=== PATIENT | female | born 1980 | race Caucasian/White ===

== ENCOUNTER → 2020-07-13 | Outpatient (CLI) | payer BC ==
--- NOTE | 2020-07-16 10:13 | MM ---
Reason for exam: screening (asymptomatic). Baseline mammogram. History: Family history of breast cancer in paternal grandmother. Took hormonal contraceptives beginning at age 20. Physical Findings: Nurse did not find any significant physical abnormalities on exam. MG 3D Screening Mammo W/Cad Bilateral CC, MLO, and XCCL view(s) were taken. The breast tissue is heterogeneously dense. This may lower the sensitivity of mammography. Focal asymmetry left MLO view. These results were verbally communicated with the patient and result sheet given to the patient on 07/13/20. ASSESSMENT: Benign, BI-RAD 2 RECOMMENDATION: Routine screening mammogram of both breasts in 1 year.
== END | disposition home or self-care (01) ==
LOC: RADMAMWWP 13:35
PROVIDERS: ATTEND Obstetrics & Gynecology
DX: Z12.31 Encounter for screening mammogram for malignant neoplasm of breast (principal); Z80.3 Family history of malignant neoplasm of breast
CPT/HCPCS: 77063; 77067

== ENCOUNTER → 2021-09-04 | Outpatient (CLI) | payer BC ==
--- NOTE | 2021-09-10 19:48 | MM ---
Reason for Exam: Screening (asymptomatic). Last mammogram was performed 1 year(s) and 2 month(s) ago. Patient History: Menarche at age 13. First Full-Term at age 29. Hormonal Contraceptives, from age 20 until age 28. Paternal grandmother had breast cancer at or over age 50. Last menstrual period: 08/27/2021 Risk Values: Julisa 5 year model risk: 0.7%. NCI Lifetime model risk: 11.0%. Prior Study Comparison: 07/13/2020 Bilateral Screening Mammogram, [facility]. Tissue Density: The breast tissue is heterogeneously dense. This may lower the sensitivity of mammography. Findings: Analyzed By CAD. Unchanged areas of asymmetric density bilaterally. No significant change from prior exams. Overall Assessment: Benign, BI-RAD 2 Management: Screening Mammogram of both breasts in 1 year. 1. A clinical breast exam by your physician is recommended on an annual basis and results should be correlated with mammographic findings. 2. Patient should continue monthly self breast exams. 3. This exam should not preclude additional follow-up of suspicious palpable abnormalities. Electronically signed and approved by: Claudine Andrade M.D. Radiologist
== END | disposition home or self-care (01) ==
LOC: RADMAMWWP 16:11
PROVIDERS: ATTEND Obstetrics & Gynecology
DX: Z12.31 Encounter for screening mammogram for malignant neoplasm of breast (principal); Z80.3 Family history of malignant neoplasm of breast
CPT/HCPCS: 77063; 77067

== ENCOUNTER → 2022-09-09 | Outpatient (CLI) | payer BC ==
--- NOTE | 2022-09-09 17:34 | MM ---
Reason for Exam: Screening (asymptomatic). Last screening mammogram was performed 12 month(s) ago. Patient History: Menarche at age 13. First Full-Term at age 29. Hormonal Contraceptives, from age 20 until age 28. Paternal grandmother had breast cancer at or over age 50. Last menstrual period: 08/21/2022 Risk Values: Julisa 5 year model risk: 0.7%. NCI Lifetime model risk: 10.9%. Prior Study Comparison: 07/13/2020 Bilateral Screening Mammogram, [facility]. 09/04/2021 Bilateral MG 3D screening mammo w/cad, [facility]. Tissue Density: The breast tissue is heterogeneously dense. This may lower the sensitivity of mammography. Findings: Analyzed By CAD. There is no suspicious group of microcalcifications or new suspicious mass in either breast. Overall Assessment: Negative, BI-RAD 1 Management: Screening Mammogram of both breasts in 1 year. . Patient should continue monthly self-breast exams. A clinical breast exam by your physician is recommended on an annual basis. This exam should not preclude additional follow-up of suspicious palpable abnormalities. Note on Julisa scores and lifetime risk: 1. A Julisa score greater than 3% is considered moderate risk. If this is the case, consider specialist referral to assess eligibility for a risk reducing agent. 2. If overall lifetime risk for the development of breast cancer is 20% or higher, the patient may qualify for future screening with alternating mammogram and breast MRI. Electronically signed and approved by: Claudine Andrade M.D. Radiologist
== END | disposition home or self-care (01) ==
LOC: RADMAMWWP 07:04
PROVIDERS: ATTEND Obstetrics & Gynecology
DX: Z12.31 Encounter for screening mammogram for malignant neoplasm of breast (principal); Z80.3 Family history of malignant neoplasm of breast
CPT/HCPCS: 77063; 77067

== ENCOUNTER → 2023-09-24 | Outpatient (CLI) | payer BC ==
--- NOTE | 2023-09-27 17:34 | MM ---
Reason for Exam: Screening (asymptomatic). Last screening mammogram was performed 12 month(s) ago. Patient History: Menarche at age 13. First Full-Term at age 29. Patient has history of breast feeding. Hormonal Contraceptives, from age 20 until age 28. Paternal grandmother had breast cancer at or over age 50. Risk Values: Julisa 5 year model risk: 0.8%. NCI Lifetime model risk: 10.8%. Prior Study Comparison: 07/13/2020 Bilateral Screening Mammogram, [facility]. 09/04/2021 Bilateral MG 3D screening mammo w/cad, [facility]. 09/09/2022 Bilateral MG 3D screening mammo w/cad, [facility]. Tissue Density: The breasts are heterogeneously dense, which may obscure small masses. Findings: Analyzed By CAD. Unchanged asymmetric density superior left MLO view. There is no suspicious group of microcalcifications or new suspicious mass in either breast. Overall Assessment: Benign, BI-RAD 2 Management: Screening Mammogram of both breasts in 1 year. . Patient should continue monthly self-breast exams. A clinical breast exam by your physician is recommended on an annual basis. This exam should not preclude additional follow-up of suspicious palpable abnormalities. Note on Julisa scores and lifetime risk: 1. A Julisa score greater than 3% is considered moderate risk. If this is the case, consider specialist referral to assess eligibility for a risk reducing agent. 2. If overall lifetime risk for the development of breast cancer is 20% or higher, the patient may qualify for future screening with alternating mammogram and breast MRI. Electronically signed and approved by: Claudine Andrade M.D. Radiologist
== END | disposition home or self-care (01) ==
LOC: RADMAMWWP 07:18
PROVIDERS: ATTEND Obstetrics & Gynecology
DX: Z12.31 Encounter for screening mammogram for malignant neoplasm of breast (principal); Z80.3 Family history of malignant neoplasm of breast
CPT/HCPCS: 77063; 77067